=== PATIENT | female | born 1980 | race Hispanic/Latino ===

== ENCOUNTER 2019-05-02 16:53 | Observation (INO) | payer BC ==
[~2019-05-02] VITALS: Ht 160 cm; Wt 83.0 kg
[~2019-05-02 16:53] MED LIST: IRON PO; PREN1TAB78 PO
[2019-05-02] MEDS ORDERED: ONDANSETRON HCL 4 MG/2 ML VIAL ONE ×2 (17:27→23:49)
[2019-05-02 17:29] LABS: APPEARANCE,URINE Cloudy (CLEAR); BILIRUBIN,URINE Negative (NEGATIVE); COLOR,URINE Yellow (YELLOW); GLUCOSE, URINE (UA) Negative (NEGATIVE); KETONES,URINE Negative (NEGATIVE); LEUKOCYTE ESTERASE ,URINE Moderate (NEGATIVE); NITRATE,URINE Negative (NEGATIVE); OCCULT BLOOD,URINE Negative (NEGATIVE); PROTEIN,URINE Trace mg/dL (NEGATIVE)
[2019-05-02 17:32] LABS: HCG,QUAL RESULT NEGATIVE (NEGATIVE)
[2019-05-02 17:43] LABS: BACTERIA,URINE Few /HPF (None Seen); MUCUS,URINE Moderate LPF (None Seen); YEAST,URINE BUDDING Moderate /HPF (None Seen)
[2019-05-02 17:47] LABS: POTASSIUM 4.8 mmol/L (3.5-5.1)
[2019-05-02 17:51] LABS: ALBUMIN 2.8 g/dL (3.5-5.0); BILIRUBIN,TOTAL 0.5 mg/dL (0.2-1.0); TOTAL PROTEIN, SERUM 7.3 g/dL (6.0-8.3)
[2019-05-02 18:03] LABS: BASOPHILS % (AUTO) 0.2 % (0.0-5.0); EOSINOPHILS % (AUTO) 0.7 % (0.0-8.0); HEMATOCRIT 32.9 % (36-48); LYMPHOCYTES % (AUTO) 8.7 % (21.0-51.0); MEAN CORPUSCULAR HEMOGLOBIN 21.4 pg (27.0-33.0); MEAN CORPUSCULAR HGB CONC 31.2 g/dL (32.0-36.0); MEAN CORPUSCULAR VOLUME 68.6 fL (79-99); MONOCYTES % (AUTO) 5.8 % (3.0-13.0); NEUTROPHILS % (AUTO) 84.6 % (40.0-77.0); PLATELET COUNT (AUTO) 299 K/uL (130-400); RED CELL DISTRIBUTION WIDTH 18.4 % (11.0-15.5); WHITE BLOOD COUNT (AUTO) 11.3 K/uL (4.8-10.8)
[2019-05-02] MEDS ORDERED: SODIUM CHLORIDE 0.9% 1000ML 2,000 ML IV ONE (18:10)
[2019-05-02] MEDS ORDERED: MORPHINE SULFATE 4 MG/1ML SYG ONE (19:02)
[2019-05-02] MEDS ORDERED: ONDANSETRON HCL 4 MG/2 ML VIAL IV PRN (19:30)
[2019-05-02] MEDS ORDERED: MORPHINE SULFATE 2 MG/ML 1ML SYG IVP PRN (19:30)
[2019-05-02] MEDS ORDERED: MAG HYDROX/AL HYDROX/SIMETH ES 30 ML SUSP UDCUP PO PRN (19:30)
[2019-05-02] MEDS ORDERED: ACETAMINOPHEN 325 MG TAB PO PRN ×2 (19:30)
[2019-05-02] MEDS ORDERED: FAMOTIDINE 20MG TAB 20 MG TAB ONE (20:20)
[2019-05-02] MEDS ORDERED: METRONIDAZOLE 500MG/100ML BAG 100 ML ONE (20:21)
[2019-05-02] MEDS ORDERED: SODIUM CHLORIDE 0.9% 1000ML 1,000 ML IV ONE (20:21)
[2019-05-02] MEDS ORDERED: CEFTRIAXONE SODIUM 1 GM ONE (20:21)
[2019-05-02] MEDS ORDERED: ACETAMINOPHEN 325 MG TAB ONE (23:49)
[2019-05-03] VITALS (7 sets, daily range): BP systolic 123–155; BP diastolic 65–92
[2019-05-03] MEDS: METRONIDAZOLE 500MG/100ML BAG 100 ML IV SCH ×3 (03:49→20:20)
[2019-05-03] MEDS: SODIUM CHLORIDE 0.9% 1000ML 1,000 ML IV SCH ×2 (03:51→13:18)
[2019-05-03 04:40] LABS: BASOPHILS % (AUTO) 0.3 % (0.0-5.0); EOSINOPHILS % (AUTO) 0.7 % (0.0-8.0); HEMATOCRIT 28.9 % (36-48); MEAN CORPUSCULAR HEMOGLOBIN 22.1 pg (27.0-33.0); MEAN CORPUSCULAR HGB CONC 31.8 g/dL (32.0-36.0); MEAN CORPUSCULAR VOLUME 69.3 fL (79-99); MONOCYTES % (AUTO) 7.9 % (3.0-13.0); NEUTROPHILS % (AUTO) 74.1 % (40.0-77.0); PLATELET COUNT (AUTO) 230 K/uL (130-400); RED BLOOD CELL COUNT(AUTO) 4.17 MIL/uL (4.00-5.50); RED CELL DISTRIBUTION WIDTH 18.3 % (11.0-15.5)
[2019-05-03 04:46] LABS: CREATININE 0.6 mg/dL (0.5-1.5); POTASSIUM 3.6 mmol/L (3.5-5.1)
[2019-05-03] MEDS ORDERED: FLU VACC QS2019-20 36MOS UP/PF 60 MCG/0.5 ML ML IM ONE (09:00)
[2019-05-03] MEDS: FAMOTIDINE 20MG TAB 20 MG TAB PO SCH (09:38)
[2019-05-03] MEDS: ENOXAPARIN SODIUM 40 MG/0.4 ML SYRINGE SQ SCH (09:39)
[2019-05-03] MEDS ORDERED: CEFTRIAXONE SODIUM 1 GM IVP SCH (19:30)
[2019-05-04 03:00] VITALS: BP 138/66
--- NOTE | 2019-05-04 03:04 | NUR ---
INCONTINENCE EPISODES PATIENT REPORTS INCONTINENCE EPISODES THROUGHOUT THE DAY. WATERY, DIARRHEA ALSO REPORTED. THIS IS THE FIRST ENCOUNTER OF BOWEL INCONTINENCE DURING THE SHIFT. PAGED HOSPITALIST,FAWAD HANSON ORDERED A UA AND STOOL CULTURE TO BE OBTAINED. WILL COLLECT THE SAMPLES ONCE AVAILABLE. WILL CONTINUE TO MONITOR PATIENT STATUS.
[2019-05-04] MEDS: SODIUM CHLORIDE 0.9% 1000ML 1,000 ML IV SCH ×2 (03:21→10:16)
[2019-05-04] MEDS: METRONIDAZOLE 500MG/100ML BAG 100 ML IV SCH ×2 (03:21→12:00)
[2019-05-04 05:34] LABS: BASOPHILS % (AUTO) 0.2 % (0.0-5.0); EOSINOPHILS % (AUTO) 2.2 % (0.0-8.0); HEMATOCRIT 27.7 % (36-48); MEAN CORPUSCULAR HEMOGLOBIN 21.7 pg (27.0-33.0); MEAN CORPUSCULAR HGB CONC 31.8 g/dL (32.0-36.0); MEAN CORPUSCULAR VOLUME 68.1 fL (79-99); MONOCYTES % (AUTO) 11.7 % (3.0-13.0); NEUTROPHILS % (AUTO) 64.9 % (40.0-77.0); PLATELET COUNT (AUTO) 239 K/uL (130-400); RED BLOOD CELL COUNT(AUTO) 4.06 MIL/uL (4.00-5.50); RED CELL DISTRIBUTION WIDTH 18.3 % (11.0-15.5); WHITE BLOOD COUNT (AUTO) 6.4 K/uL (4.8-10.8)
[2019-05-04 05:44] LABS: CREATININE 0.7 mg/dL (0.5-1.5)
--- NOTE | 2019-05-04 06:05 | NUR ---
CRITICAL LAB PAGED [employer]. POTASSIUM 3.0. NO POTASSIUM PROTOCOL IN PLACE TO PROVIDE COVERAGE AT THIS TIME. PENDING PHYSICIAN TO CALL BACK.
[2019-05-04] MEDS ORDERED: POTASSIUM CHLORIDE 20MEQ/100ML 100 ML IV PRN (06:45)
[2019-05-04] MEDS ORDERED: LIDOCAINE HCL-MPF 1% 2ML VIAL IV PRN (06:45)
[2019-05-04] MEDS ORDERED: POTASSIUM CHLORIDE 10% ELIXIR 20 MEQ/15 ML UDCUP PO PRN (06:45)
--- NOTE | 2019-05-04 06:45 | NUR ---
PHYSICIAN RETURNED PAGE ELAINA SMITH LOFTER RETURNED CALL REGARDING POTASSIUM OF 3.0. POTASSIUM PROTOCOL ORDERED VIA T/O. WILL PLACE IN ORDER AND ENDORSE TO ONCOMING NURSE.
--- NOTE | 2019-05-04 07:01 | NUR ---
UPDATED LYNN OF POTASSIUM RESULTS AND PROTOCOL THAT WAS ORDERED BY FAWAD BRENNAN. NO OTHER ORDERS WERE PLACED AT THIS TIME.
[2019-05-04 07:04] LABS: BILIRUBIN,URINE Negative (NEGATIVE); COLOR,URINE Yellow (YELLOW); GLUCOSE, URINE (UA) Negative (NEGATIVE); KETONES,URINE 40 mg/dL (NEGATIVE); LEUKOCYTE ESTERASE ,URINE Large (NEGATIVE); NITRATE,URINE Negative (NEGATIVE); OCCULT BLOOD,URINE Negative (NEGATIVE); PH,URINE 5.5 (5.0-8.0); PROTEIN,URINE Negative (NEGATIVE); UROBILINOGEN,URINE 0.2 mg/dL (0.2-1.0)
[2019-05-04 07:12] LABS: APPEARANCE,URINE SLIGHTLY CLOUDY (CLEAR)
[2019-05-04 08:00] VITALS: BP 132/85
[2019-05-04 08:12] LABS: BACTERIA,URINE Few /HPF (None Seen)
[2019-05-04] MEDS: FAMOTIDINE 20MG TAB 20 MG TAB PO SCH (10:15)
[2019-05-04] MEDS: POTASSIUM CHLORIDE 20 MEQ ERTAB PO PRN ×4 (10:15→18:44)
[2019-05-04] MEDS: ENOXAPARIN SODIUM 40 MG/0.4 ML SYRINGE SQ SCH (10:16)
[2019-05-04] MEDS ORDERED: GADODIAMIDE 10 MMOL/20 ML VIAL IV ONE (10:36)
[2019-05-04 12:00] VITALS: BP 133/86
[2019-05-04 16:00] VITALS: BP 145/95
== END 2019-05-04 18:50 | disposition home or self-care (01) ==
LOC: EDH 16:53 → EDHIP 19:26 → 3AH 05-03 00:33
PROVIDERS: ADMIT Hospitalist; ATTEND Hospitalist
DX: K52.9 Noninfective gastroenteritis and colitis, unspecified (principal); R11.2 Nausea with vomiting, unspecified; R10.13 Epigastric pain; N17.9 Acute kidney failure, unspecified; N39.0 Urinary tract infection, site not specified; D17.71 Benign lipomatous neoplasm of kidney; Z23 Encounter for immunization; Z90.49 Acquired absence of other specified parts of digestive tract; Z90.721 Acquired absence of ovaries, unilateral
CPT/HCPCS: 36415 ×3; 74176; 74183; 80048 ×2; 80053; 81001 ×2; 81025; 83690; 85025 ×3; 86677; 87046; 87088; 87324; 90471; 96361; 96365; 96366 ×2; 96372 ×2; 96375; 99284; A9579; G0378 ×47; J0696 ×2; J1650 ×2; J2270; J2405 ×2; J3490 ×6; J7030 ×2; Q2035; G0008

== ENCOUNTER → 2024-01-01 | Outpatient (CLI) | payer BC | END | disposition home or self-care (01) | LOC: RAH 09:43 | PROVIDERS: ATTEND Family Medicine | DX: Z12.31 Encounter for screening mammogram for malignant neoplasm of breast (principal) | CPT/HCPCS: 77067 ==

== ENCOUNTER → 2024-07-07 | Outpatient (CLI) | payer BC ==
[~2024-07-07] MED LIST changes: +FERS325 PO; -IRON PO; +LOSA50TA64 PO; -PREN1TAB78 PO; +[UNRECOGNIZED DRUG - CODE] PO
[2024-07-07 12:32] LABS: BASOPHILS # (AUTO) 0.04 K/uL (0.00-0.20); BASOPHILS % (AUTO) 0.6 % (0.0-5.0); HEMATOCRIT 38.2 % (36-48); IMMATURE GRANULOCYTE ABSOLUTE 0.03 K/uL (0-1); LYMPHOCYTES # (AUTO) 1.5 K/uL (1.0-4.8); LYMPHOCYTES % (AUTO) 21.8 % (21.0-51.0); MEAN CORPUSCULAR HEMOGLOBIN 23.7 pg (27.0-33.0); MEAN CORPUSCULAR HGB CONC 30.6 g/dL (32.0-36.0); MEAN CORPUSCULAR VOLUME 77.5 fL (79-99); MONOCYTES # (AUTO) 0.5 K/uL (0.1-1.0); MONOCYTES % (AUTO) 7.2 % (3.0-13.0); NEUTROPHILS # (AUTO) 4.5 K/uL (1.8-7.7); PLATELET COUNT (AUTO) 352 K/uL (130-400); RED BLOOD CELL COUNT(AUTO) 4.93 MIL/uL (4.00-5.50); RED CELL DISTRIBUTION WIDTH 21.2 % (11.0-15.5); WHITE BLOOD COUNT (AUTO) 6.7 K/uL (4.8-10.8)
[2024-07-07 12:54] LABS: CREATININE 0.8 mg/dL (0.5-1.0)
== END | disposition home or self-care (01) ==
LOC: LAB 11:49
PROVIDERS: ATTEND Urology
DX: D17.71 Benign lipomatous neoplasm of kidney (principal); D30.00 Benign neoplasm of unspecified kidney
CPT/HCPCS: 36415; 80048; 85025

== ENCOUNTER → 2024-07-08 | Outpatient (CLI) | payer BC ==
[~2024-07-08] MED LIST changes: +IOHEXOL-350 75 ML VIAL IV ONE
--- NOTE | 2024-07-08 11:04 | HMCIMG ---
CT ABDOMEN/PELVIS W/WO CONTRAS REASON: BENIGN LIPOMATOUS NEOPLASM OF KIDNEY COMPARISON: 05/26/2024 TECHNIQUE: Images are obtained from lung bases through the symphysis pubis before and after IV contrast, 75 cc Omnipaque 350. Oral contrast was administered as well. FINDINGS: Lung bases are clear. There are no focal liver lesions. There are normal-appearing kidneys.. Spleen and pancreas appear unremarkable. There has been a previous cholecystectomy. Mass is again noted extending posteriorly and superiorly from the left kidney. This measures 7.4 x 9.4 cm axial dimension and 7.5 cm superior to inferior. There is moderate fat content. There is also fluid present. These findings remain consistent with hemorrhage into an angiomyolipoma. The degree of hemorrhage has decreased considerably compared to previous study 05/26/2024, the fluid component is also significantly decreased decreased attenuation, lungs are consistent with resolving hematoma. Left kidney appears otherwise unremarkable. The right kidney appears normal. Bowel loops appear unremarkable. This includes normal appearance of the appendix There is no evidence of free fluid or intraperitoneal air. There are no focal fluid collections. Aorta and retroperitoneum appear normal as do pelvic soft tissue structures. The anterior abdominal wall is intact. Osseous structures appear unremarkable. IMPRESSION: 1. 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 2. Overall size of the lesion has decreased somewhat in the interval due to partial resolution of the hemorrhagic component 3. Otherwise unremarkable pre and postcontrast to CT abdomen and pelvis. CT was performed with one or more following dose reduction techniques: automated exposure control, adjustment of the mA and kv according to patient's size, or use of a iterative reconstruction technique.
== END | disposition home or self-care (01) ==
LOC: RAH 09:09
PROVIDERS: ATTEND Urology
DX: D17.71 Benign lipomatous neoplasm of kidney (principal); N28.89 Other specified disorders of kidney and ureter; Z90.49 Acquired absence of other specified parts of digestive tract
CPT/HCPCS: 74178; Q9967

== ENCOUNTER → 2024-07-16 | Outpatient (CLI) | payer BC ==
[~2024-07-16] MED LIST changes: -IOHEXOL-350 75 ML VIAL IV ONE
--- NOTE | 2024-07-16 17:14 | HMCIMG ---
NM RENAL SCAN REASON: BENIGN LIPOMATOUS NEOPLASM OF KIDNEY. COMPARISON: CT from July 08, 2024 TECHNIQUE: Renal scan was performed with 8 mCi of technetium MAG3 through intravenous route. FINDINGS: Differential uptake of left kidney is 22.6% and left kidney is 77.4%. CT from July 08, 2024 show large left renal mass with fat content. T half for renal clearance of left kidney is 11.4 minutes and right kidney is 9.5 minutes. IMPRESSION: CT shows large left renal mass with fat containing. Decreased uptake is noted of the left kidney. No definite obstruction is seen.
== END | disposition home or self-care (01) ==
LOC: RAH 14:47
PROVIDERS: ATTEND Urology
DX: D17.71 Benign lipomatous neoplasm of kidney (principal); N28.89 Other specified disorders of kidney and ureter
CPT/HCPCS: 78700; A9562